=== PATIENT | male | born 1980 | race Caucasian/White ===

== ENCOUNTER 2018-03-11 00:30 | Emergency (ER) | payer MEDICAID ==
[~2018-03-11 00:30] MED LIST: Sodium Chloride 0.9% 1000 ML 1,000 ML ONE
[2018-03-11] MEDS ORDERED: VERSED 5 MG/5 ML ONE (00:57)
[2018-03-11 01:37] LABS: Hematocrit 49.5 % (42-50); Hemoglobin 16.6 gm/dl (12.5-18.0); Mean Cell Volume 96.1 fl (78-100); Mean Corpuscular Hemoglobin 32.2 pg (26-32); Mean Corpuscular Hgb Concent. 33.5 g/dl (32-36); Mean Platelet Volume 9.4 fl (6-9.5); Platelet Count 438 K/mm3 (150-450); Red Blood Count 5.15 M/mm3 (4.1-5.6); Red Cell Distribution Width 12.4 % (11.5-14.0); White Blood Count 17.6 K/mm3 (4.0-10.5)
[2018-03-11 01:40] LABS: ALKALINE PHOSPHATASE 97 U/L (38-126); ANION GAP 26.4 MEQ/L (5-15); BLOOD UREA NITROGEN 16 mg/dL (9-20); CHLORIDE 99 mmol/L (98-107); Calcium 9.6 mg/dL (8.4-10.2); Carbon Dioxide 22 mmol/L (22-30); Creatinine 1 1.37 mg/dL (0.66-1.25); Glucose 247 mg/dL (74-106); Potassium 5.5 mmol/L (3.5-5.1); SGOT/AST 102 U/L (17-59); SGPT/ALT 74 U/L (0-50); SODIUM 142 mmol/L (137-145); Total Protein 8.3 g/dL (6.3-8.2)
[2018-03-11] MEDS ORDERED: Sodium Chloride 0.9% 1000 ML 1,000 ML ONE ×2 (01:40→03:47)
[2018-03-11 01:41] LABS: A-aADO2 170; ABG HEMOGLOBIN 14.9; ABG POTASSIUM 3.8 (3.5-5.1); ARTERIAL BLD GAS O2 SATURATION 99.8 % (95-100); ARTERIAL BLD GAS TIDAL VOLUME 500 cc; ARTERIAL BLOOD GAS BASE EXCESS -2.7 (-2.0-2.0); ARTERIAL BLOOD GAS FIO2 100 %; ARTERIAL BLOOD GAS PCO2 65 mmHg (35-45); ARTERIAL BLOOD GAS PEEP 5 cmH2O; ARTERIAL BLOOD GAS PO2 462 mmHg (75-100); ARTERIAL BLOOD GAS VENT MODE A/C; ARTERIAL BLOOD GAS pH 7.22 (7.35-7.45); CARBOXYHEMOGLOBIN 1.3 % THgb (0.0-6.9); HCO3- 26.6 (22-28); HGB O2 SAT 97.9 g/dF (94-100); Methhemoglobin 0.7 % (1.4-1.5); paO2 pAO1 0.73
[2018-03-11 01:42] LABS: ABG SITE RIGHT BRACHIAL; ARTERIAL BLOOD GAS VENT RATE 14 /MIN
[2018-03-11] MEDS ORDERED: Versed 50 MG/ 10 Ml MDV ONE (01:46)
[2018-03-11] MEDS ORDERED: Sodium Chloride 0.9% 250 ML 250 ML IV ONE (01:46)
[2018-03-11 01:50] LABS: Barbiturate,Urine NEGATIVE (NEGATIVE); Benzodiazepine,Urine NEGATIVE (NEGATIVE); Cocaine,Urine NEGATIVE (NEGATIVE); Methadone,Urine NEGATIVE (NEGATIVE); Opiate,Urine NEGATIVE (NEGATIVE); PCP,Urine NEGATIVE (NEGATIVE); THC,Urine POSITIVE (NEGATIVE)
[2018-03-11 01:53] LABS: A-aADO2 350; ABG HEMOGLOBIN 16.7; ARTERIAL BLD GAS O2 SATURATION 40.8 % (95-100); ARTERIAL BLOOD GAS BASE EXCESS -12.4 (-2.0-2.0); ARTERIAL BLOOD GAS FIO2 60 %; ARTERIAL BLOOD GAS TEMPERATURE 28.8 C; CARBOXYHEMOGLOBIN 1.4 % THgb (0.0-6.9); HCO3- 19.3 (22-28); HGB O2 SAT 40.1 g/dF (94-100); Methhemoglobin 0.2 % (1.4-1.5); paO2 pAO1 0.05
[2018-03-11 01:54] LABS: ABG POTASSIUM 6.2 (3.5-5.1); ARTERIAL BLOOD GAS PCO2 68 mmHg (35-45); ARTERIAL BLOOD GAS PO2 33 mmHg (75-100)
[2018-03-11 01:55] LABS: ABG SITE RIGHT BRACHIAL; ARTERIAL BLOOD GAS pH 7.06 (7.35-7.45)
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
[2018-03-11 02:11] LABS: ACETAMINOPHEN < 10 ug/ml (10-30)
[2018-03-11 02:12] LABS: CK-Creatinine Phosphokinase 3990 U/L (55-170)
[2018-03-11] MEDS ORDERED: Versed 50 MG/ 10 Ml MDV*** 50 MG in Sodium Chloride 0.9% 250 ML 240 ML IV PRN (02:22)
[2018-03-11] MEDS ORDERED: VERSED 5 MG/5 ML IV ONE (02:22)
[2018-03-11] MEDS ORDERED: Zemuron 100 MG/10 ML IV ONE ×2 (02:23→02:25)
[2018-03-11] MEDS ORDERED: Sodium Chloride 0.9% 1000 ML 1,000 ML IV STA (02:28)
[2018-03-11] MEDS ORDERED: Sodium Chloride 0.9% 500 ML 500 ML IV ONE (02:28)
[2018-03-11] MEDS ORDERED: Nimbex 200MG/20 Ml MDV (HIGH RISK MED)** 200 MG in Dextrose 5%/Water IV Soln. 250 ML 18... IV SCH (02:30)
[2018-03-11] MEDS ORDERED: Sodium Chloride 0.9% 1000 ML 1,000 ML IV SCH ×2 (02:30→05:30)
[2018-03-11] MEDS ORDERED: Dextrose 5%/Water IV Soln. 250 ML 250 ML IV ONE (02:34)
[2018-03-11 02:55] LABS: BAND 3 % (0.0-2.0); Basophil 1 % (0.0-1.0); Eosinophil 1 % (0.00-3.0); Lymphocytes 18 % (24-44); Monocyte 5 % (0.0-12.0); Neutrophils 72 % (36.-66.); Platelet Estimate NORMAL (NORMAL); Total Cells Counted 100
[2018-03-11 03:10] LABS: A-aADO2 227; ABG HEMOGLOBIN 15.3; ABG POTASSIUM 3.8 (3.5-5.1); ARTERIAL BLD GAS O2 SATURATION 99.7 % (95-100); ARTERIAL BLD GAS TIDAL VOLUME 500 cc; ARTERIAL BLOOD GAS BASE EXCESS -1.2 (-2.0-2.0); ARTERIAL BLOOD GAS FIO2 100 %; ARTERIAL BLOOD GAS PCO2 57 mmHg (35-45); ARTERIAL BLOOD GAS PEEP 5 cmH2O; ARTERIAL BLOOD GAS PO2 415 mmHg (75-100); ARTERIAL BLOOD GAS VENT MODE A/C; ARTERIAL BLOOD GAS pH 7.28 (7.35-7.45); HCO3- 26.8 (22-28); HGB O2 SAT 97.5 g/dF (94-100); Methhemoglobin 1.1 % (1.4-1.5); paO2 pAO1 0.65
[2018-03-11 03:11] LABS: ABG SITE RIGHT BRACHIAL; ARTERIAL BLOOD GAS VENT RATE 20 /MIN
[2018-03-11 04:46] VITALS: O2SAT 100
[2018-03-11 04:53] LABS: ABSOLUTE NEUTROPHILS 12.7 (1.4-6.9)
[2018-03-11] MEDS ORDERED: Nimbex 20MG/10 Ml Vial (HIGH RISK MED) IV ONE (05:19)
[2018-03-11 05:29] LABS: Amphetamine,Urine NP *see comment (NEGATIVE)
[2018-03-11 06:03] VITALS: BP 165/109; PULSE 119
--- NOTE | 2018-03-11 08:45 | XRAY ---
Indication: Hypothermia. Central line placement and intubation. Comparison: None Portable chest demonstrates endotracheal tube tip 3 cm above the fátima and left subclavian central venous access catheter with tip projecting over the SVC. Remaining heart and lungs normal. Bony thorax intact with minimal double curvature scoliosis. Impression: Negative chest with support catheter and tubing in situ.
[2018-03-11 08:47] LABS: Appearance CLEAR (CLEAR); Bacteria MODERATE /HPF (NEGATIVE); Bilirubin NEGATIVE (NEGATIVE); Blood LARGE Ery/ul (0-5); Epithelial Cells RARE /HPF (FEW); Glucose NEGATIVE (NEGATIVE); Hyaline Casts 0-2 /LPF (0-2); Ketones NEGATIVE (NEGATIVE); Leukocyte Esterase NEGATIVE (NEGATIVE); Mucus SLIGHT /HPF (NEGATIVE); Nitrite NEGATIVE (NEGATIVE); Protein,Urine Dip 100 (Negative); RBC 26-50 /HPF (0-2); Specific Gravity 1.023 (1.005-1.025); Urobilinogen NEGATIVE mg/dL (0-1)
--- NOTE | 2018-03-11 08:47 | XRAY ---
Indication: Hypothermia and unresponsive following recovery from [place]. Multiple contiguous axial images obtained through the head without contrast. Comparison: None Ventriculosulcal pattern appears symmetric. No acute intracranial hemorrhage, abnormal extra-axial fluid collection, or mass effect. Fourth ventricle is midline without hydrocephalus. [place]-white matter differentiation preserved. Bony calvarium intact. Visualized paranasal sinuses and mastoid air cells are clear. Incidental partially visualized left NG tube. Impression: No acute intracranial abnormalities. Comment: Preliminary interpretation was made by [facility]. No discrepancy. CT DI 62.53
== END 2018-03-11 06:31 | disposition short-term general hospital (02) ==
LOC: ED 00:30 → EDBD 00:30 → ED 06:31
DX: T68.XXXA Hypothermia, initial encounter (principal); J96.92 Respiratory failure, unspecified with hypercapnia; J96.91 Respiratory failure, unspecified with hypoxia; F15.10 Other stimulant abuse, uncomplicated; R00.0 Tachycardia, unspecified; X31.XXXA Exposure to excessive natural cold, initial encounter
CPT/HCPCS: 31500; 51702; 70450; 80053; 80307; 80326; 81001; 82375; 82550; 82803; 85025; 87086; 94799; 96360; 96361; 96365; 96374; 96375; 96376; 99291; 99292; G0481; 36000; 36415; 36600; 71045; 94002; 99285; J2250; G0480